=== PATIENT | male | born 1990 | race African-American/Black ===

== ENCOUNTER 2019-07-29 00:25 | Emergency (ER) | payer OTHER ==
[~2019-07-29] VITALS: Ht 177.8 cm; Wt 72.6 kg
[2019-07-29] MEDS ORDERED: NORCO 5-325 TA1 EAC1 PO (01:58)
[2019-07-29 03:00] VITALS: BP 135/69
== END 2019-07-29 03:05 | disposition home or self-care (01) ==
LOC: ER 00:25
DX: S62.336A Displaced fracture of neck of fifth metacarpal bone, right hand, initial encounter for closed fracture (principal); Z98.890 Other specified postprocedural states; W22.01XA Walked into wall, initial encounter; Y93.89 Activity, other specified; Y92.89 Other specified places as the place of occurrence of the external cause; Y99.9 Unspecified external cause status

== ENCOUNTER 2019-08-29 16:16 | Emergency (ER) | payer OTHER ==
[~2019-08-29] VITALS: Ht 177.8 cm; Wt 74.4 kg
[~2019-08-29 16:16] MED LIST: NORCO 5-325 TA1 EAC1 PO
[2019-08-29 18:04] LABS: HEMOGLOBIN 15.9 gm/dL (14.0-18.0); MCH 30.7 pg (26.0-34.0); MCHC 33.8 g/dL (28.0-37.0); MCV 90.8 fL (80.0-100.0); PLATELET COUNT 159 thou/uL (150-400); RBC 5.18 mil/uL (4.50-6.00); RDW 13.9 % (10.5-14.5); WBC 6.8 thou/uL (4.0-11.0)
[2019-08-29 18:17] LABS: CALCIUM 9.4 mg/dL (8.5-10.1); POTASSIUM 4.2 mmol/L (3.5-5.1)
[2019-08-29 18:24] LABS: ALBUMIN 3.9 g/dL (3.4-5.0); TOTAL BILIRUBIN 0.5 mg/dL (<0.1-1.0)
[2019-08-29 18:36] LABS: ABSOLUTE NEUTROPHILS 3.7 thou/uL (1.4-8.2); ATYPICAL LYMPHS 17 %
[2019-08-29] MEDS ORDERED: TAMIFLU75 MG PO (18:56)
[2019-08-29] MEDS ORDERED: PROMETH-CODEIN 65 ML PO (18:56)
[2019-08-29 19:10] VITALS: BP 124/67
== END 2019-08-29 19:22 | disposition home or self-care (01) ==
LOC: ER 16:16
PROVIDERS: Physician Assistant
DX: J11.1 Influenza due to unidentified influenza virus with other respiratory manifestations (principal); F12.10 Cannabis abuse, uncomplicated; F14.10 Cocaine abuse, uncomplicated; Z87.891 Personal history of nicotine dependence; M79.10 Myalgia, unspecified site